=== PATIENT | male | born 1990 | race Caucasian/White ===

== ENCOUNTER 2016-09-13 19:08 | Inpatient (IN) | payer BC ==
--- NOTE | ~2016-09-13 | OP ---
Record Of Operation [facility] [address]. [address] NAME: BEN BLANK : 90 STATUS : ADM IN PAT#: [id number] AGE: 25 ADM/REG DATE : 09/13/16 MR#: [id number] REPORT SERV DATE: 09/14/16 DICTATED BY: BRYANT KELLY DATE: 09/14/16 REPORT STATUS : Draft TRANSCRIBED BY: MODHung DATE: 09/14/16 DATE OF PROCEDURE: 09/14/2016 PREOPERATIVE DIAGNOSIS: Left-sided L4-5 and L5-S1 disc herniation with severe stenosis and nerve compression, lumbar radiculopathy, intractable pain. POSTOPERATIVE DIAGNOSIS: Left-sided L4-5 and L5-S1 disc herniation with severe stenosis and nerve compression, lumbar radiculopathy, intractable pain. PROCEDURE: Left L4-5 and L5-S1 microdiscectomy, use of operative microscope, minimal access spine technology, intraoperative O-arm CT scan with computer navigation. SURGEON: Bryant Kelly DO. ANESTHESIA: General. ESTIMATED BLOOD LOSS: 15 mL. COMPLICATIONS: None. INDICATIONS: The patient is a 25-year-old who was admitted to the hospital yesterday directly from my clinic due to intractable leg pain, inability to ambulate, and for planned surgery today. PROCEDURE IN DETAIL: I identified the patient in the holding area. Consent was obtained, went to the operating room, underwent general anesthesia with endotracheal intubation. Prepped and draped in the usual sterile fashion. Operative safety pause was performed, then we proceeded with surgery. O-arm registration frame was placed in the iliac crest. O-arm was brought in for intraoperative CT scan. Computer registration materials were verified. Under computer guidance, a left longitudinal incision was made from L4-S1 taken down to the fascial layer. Tube dilators were used to minimally and invasively dissect down to the left L4-5 interspace. Operative microscope was brought in. A nav was used to perform a laminotomy. Mejia performed a foraminotomy. Disc was incised and free disc material removed with pituitary. L4 and L5 nerve roots were free of compression. This was repeated again at the L5-S1 level where there were several large pieces of extruded disc fragments as well as some calcification that was removed and the L5 and S1 nerve roots again were free of compression. Irrigation performed. Hemostasis achieved. 40 mg Depo-Medrol injected over the nerve roots. Layered closure performed. Sterile dressings applied. The patient awoke and extubated, taken to the recovery room in stable condition. OPERATIVE FINDINGS: Left L4-5 and L5-S1 disc herniation, foraminal stenosis. JEAN-PIERRE/DEBRA Record Of [address] [place]. [address] NAME: BEN BLANK : 90 STATUS : ADM IN [facility]#: [id number] AGE: 25 ADM/REG DATE : 09/13/16 MR#: [id number] REPORT SERV DATE: 09/14/16 DICTATED BY: BRYANT KELLY DATE: 09/14/16 REPORT STATUS : Draft TRANSCRIBED BY: DEBRA DATE: 09/14/16 Bryant Kelly DO / [id number] CC: Bryant Kelly DO
--- NOTE | ~2016-09-13 | HP ---
History And Physical [place] [id number] [place]. [address] NAME: BEN BLANK : 90 STATUS : ADM IN [facility]#: [id number] AGE: 25 ADM/REG DATE : 09/13/16 MR#: [id number] REPORT SERV DATE: 09/14/16 DICTATED BY: BRYANT KELLY DATE: 09/14/16 REPORT STATUS : Draft TRANSCRIBED BY: DEBRA DATE: 09/14/16 DATE OF ADMISSION: 09/13/2016 CHIEF COMPLAINT: Intractable left leg pain. HISTORY OF PRESENT ILLNESS: The patient is a 25-year-old who had initially seen my partner, Dr. Perry, on 09/12/2016, and then emergently followed up with me on 09/13/2016. The patient had intractable left leg pain, unable to find any position of comfort. Had significant difficulty with ambulating. His leg was giving out and putting him at severe risk for fall and further injury. We discussed various options including nonsurgical treatment but given his intractable pain and inability to ambulate without severe risk of a fall, we did decide to proceed with admission for pain control and for planned surgical intervention. REVIEW OF SYSTEMS: He denies chest pain, shortness of breath, and bowel or bladder changes. ALLERGIES: NEOSPORIN. FAMILY HISTORY: Noncontributory. PAST MEDICAL HISTORY: Otherwise negative. PHYSICAL EXAMINATION: VITALS: Height 6 feet 5 inches, weight 300, BMI 35.6. GENERAL: Patient is healthy appearing, moderate amount of distress just secondary to pain. PSYCH: Alert and oriented x3. Normal mood and affect. Gait was very antalgic and somewhat unsteady. Strength in the lower extremities remain neurologically intact. No focal deficit. He did have a positive straight leg raise on the left. HEART: Regular rate and rhythm. LUNGS: Clear to auscultation. ABDOMEN: Soft, nontender, nondistended with good bowel sounds. BREASTS: Deferred. RECTAL: Deferred. IMAGING: I have reviewed the MRI scan. He does have a very large disc herniation at L5-S1 on the left and a moderate-size at L4-L5, both causing nerve compression. ASSESSMENT: L4 through S1 disc disease and stenosis with lumbar disc herniations, lumbar radiculopathy, fall risk, intractable pain. PLAN: The patient is going to be admitted to the hospital due to intractable pain, inability to ambulate, and fall risk for pain management and for planned surgery on 09/14/2016. History And Physical [address] [address] NAME: BEN BLANK : 90 STATUS : ADM IN PAT#: [id number] AGE: 25 ADM/REG DATE : 09/13/16 MR#: [id number] REPORT SERV DATE: 09/14/16 DICTATED BY: BRYANT KELLY DATE: 09/14/16 REPORT STATUS : Draft TRANSCRIBED BY: DEBRA DATE: 09/14/16 JEAN-PIERRE/DEBRA Bryant Kelly DO / [id number] CC: Bryant Kelly DO
[2016-09-13] MEDS ORDERED: MEDROLPAK4 PO (20:43)
[2016-09-13] MEDS ORDERED: ALEVE220 MG PO (20:44)
[2016-09-13 22:09] LABS: BASOPHILS 0.2 %; BASOPHILS ABSOLUTE 0.03 10/3/uL (0.0-0.16); EOSINOPHILS 2.2 %; EOSINOPHILS ABSOLUTE 0.32 10/3/uL (0.0-0.53); HEMATOCRIT 41.9 % (40.0-51.0); HEMOGLOBIN 14.5 g/dL (13.6-17.8); IMMATURE GRANULOCYTES 0.3 %; IMMATURE GRANULOCYTES ABSOLUTE 0.04 10/3/uL (0.0-0.11); LYMPHOCYTES 28.6 %; MEAN CORPUS HGB CONC 34.6 g/dL (32.0-36.0); MEAN CORPUSCULAR HEMOGLOB 30.8 pg (26.0-34.0); MEAN PLATELET VOLUME 10.6 fL (9.2-13.0); MONOCYTES 7.9 %; MONOCYTES ABSOLUTE 1.13 10/3/uL (0.21-1.20); NEUTROPHILS 60.8 %; NEUTROPHILS ABSOLUTE 8.73 10/3/uL (2.02-8.40); PLATELET COUNT 324 10/3/uL (150-400); RBC DISTRIBUTION WIDTH 12.9 % (12.0-16.0); RED CELL COUNT 4.71 10/6/uL (4.7-6.1); WHITE BLOOD CELLS 14.4 10/3/uL (4.5-10.5)
[2016-09-13 22:11] LABS: MANUAL DIFF NO %
[2016-09-13 22:24] LABS: ALBUMIN 3.7 G/DL (3.5-5.0); ALKALINE PHOSPHATASE 81 U/L (45-117); BUN (BLOOD UREA NITROGEN) 18 MG/DL (6-23); CALCIUM, SERUM 8.8 MG/DL (8.5-10.4); CHLORIDE, SERUM 101 MMOL/L (96-112); CO2 (CARBON DIOXIDE) 30 MMOL/L (24-34); CREATININE 1.26 MG/DL (0.70-1.30); GFR AFRICAN AMERICAN 91 ML/MIN (>=60); GFR NON AFRICAN AMERICAN 79 ML/MIN (>=60); GLOBULIN 3.8 G/DL (2.5-4.1); GLUCOSE, SERUM 85 MG/DL (60-99); POTASSIUM, SERUM 3.5 MMOL/L (3.5-5.3); SGOT(AST) 22 U/L (5-40); SGPT(ALT) 56 U/L (5-65); SODIUM, SERUM 141 MMOL/L (135-148); TOTAL BILIRUBIN 0.3 MG/DL (0-1.2); TOTAL PROTEIN 7.5 G/DL (6.0-8.5)
[2016-09-13 22:38] LABS: ASCORBIC ACID (UR NOT ORDER) NEG (NEG); BILIRUBIN, URINE NEGATIVE (NEG); KETONE, URINE NEGATIVE (NEG); LEUKOCYTE ESTERASE(NOT OR NEG (NEG); WBC (NOT ORDERED) (RFLEX) 1 (0-5)
[2016-09-15] MEDS ORDERED: PCET PO (11:31)
[2016-09-15] MEDS ORDERED: FLEX PO (11:31)
== END 2016-09-15 13:02 | disposition home or self-care (01) | DRG 520 ==
LOC: 3SO 19:08
PROVIDERS: Orthopaedic Surgery
PROC: 0ST20ZZ Resection of Lumbar Vertebral Disc, Open Approach (ICD-10-PCS; principal; 2016-09-13)
PROC: 0ST40ZZ Resection of Lumbosacral Disc, Open Approach (ICD-10-PCS; 2016-09-13)
DX: M51.16 Intervertebral disc disorders with radiculopathy, lumbar region (principal)
CPT/HCPCS: 80053; 81001; 85025; 88304; 88311; 97161-GP; 97530-GP; A9270-GY; J0690; J1030; J2250; J2270; J2405; J2550; J2710; J3010